=== PATIENT | male | born 1955 | race African-American/Black ===

== ENCOUNTER 2016-06-21 01:17 | Emergency (ER) | payer SELFPAY ==
[~2016-06-21] VITALS: Ht 165.1 cm; Wt 78.9 kg
--- NOTE | 2016-06-21 01:47 | NUR ---
SPOKE WITH JOHN PATIENT SAFETY ATTENDANT AT [facility] AND CONFIRMED PT HAD ANOTHER ROOM AVAILABLE TO RETURN TO. ASKED JOHN TO FAX ADMITTING A FACE SHEET
--- NOTE | 2016-06-21 01:53 | NUR ---
CALLED [facility] FOR BLS TRANSPORT BACK TO [facility] ETA IS [phone]
[2016-06-21 02:46] VITALS: BP 107/75
--- NOTE | 2016-06-21 02:47 | NUR ---
PT LEFT VIA [facility]. NO S/S OF PAIN OR DISTRESS NOTED. VSS. Patient discharged to home in stable condition. Written and verbal after care instructions given. Patient verbalizes understanding of instruction.
== END 2016-06-21 02:47 | disposition home or self-care (01) ==
LOC: ER 01:20
DX: Z00.8 Encounter for other general examination (principal); Z95.0 Presence of cardiac pacemaker
CPT/HCPCS: A4606; Z7610

== ENCOUNTER 2018-05-05 10:19 | Emergency (ER) | payer OTHER, MEDICAID ==
[~2018-05-05] VITALS: Ht 160 cm; Wt 84.4 kg
--- NOTE | 2018-05-05 10:23 | NUR ---
pt brought in from assisted living facility where pt found trying to comit suicide pt ere for psych evaluation currently pt calm and cooperative urine and blood samples will be obtained.
[2018-05-05 10:37] LABS: BASOPHILS # (AUTO) 0.2 /CMM (0.0-0.2); BASOPHILS % (AUTO) 1.9 % (0.0-2.0); EOSINOPHILS % (AUTO) 2.1 % (0.0-6.0); HEMATOCRIT 36 % (39-51); HEMOGLOBIN 11.4 g/dL (13.5-17.5); LYMPHOCYTES # (AUTO) 2.1 /CMM (0.8-4.8); MEAN CORPUSCULAR HGB CONC 32 g/dl (31.0-36.0); MEAN CORPUSCULAR VOLUME 88 fL (80-96); MONOCYTES # (AUTO) 1.1 /CMM (0.1-1.30); MONOCYTES % (AUTO) 12.2 % (2.0-12.0); NEUTROPHILS # (AUTO) 5.6 /CMM (1.8-8.9); NEUTROPHILS % (AUTO) 60.8 % (43.0-81.0); PLATELET COUNT (AUTO) 363 /CMM (150-450); RED BLOOD CELL COUNT(AUTO) 4.07 MIL/uL (4.5-6.0); WHITE BLOOD COUNT (AUTO) 9.3 K/uL (4.3-11.0)
--- NOTE | 2018-05-05 10:40 | NUR ---
pt on [id number] hold lapd writting hold
[2018-05-05 10:43] LABS: CALCIUM, SERUM 8.7 mg/dL (8.5-10.1); CARBON DIOXIDE 27 mmol/L (21-32); CHLORIDE 103 mmol/L (98-107); CREATININE 1.1 mg/dL (0.6-1.3); GLUCOSE 150 mg/dL (74-106); POTASSIUM 3.6 mmol/L (3.5-5.1); SODIUM SERUM 139 mmol/L (136-145); UREA NITROGEN, BLOOD 12 mg/dL (7-18)
[2018-05-05 10:49] LABS: ALANINE AMINOTRANSFERASE 19 U/L (12-78); ALBUMIN 3.5 g/dL (3.4-5.0); ALCOHOL, BLOOD < 3 mg/dL (0-0); ALKALINE PHOSPHATASE 64 U/L (46-116); ASPARTATE AMINOTRANSFERASE 19 U/L (15-37); BILIRUBIN,DIRECT 0.1 mg/dL (0.0-0.2); BILIRUBIN,TOTAL 0.2 mg/dL (0.2-1.0); TOTAL PROTEIN, SERUM 7.3 g/dL (6.4-8.2)
[2018-05-05 10:50] LABS: ACETAMINOPHEN 0 ug/ml (10-30); SALICYLATE 2.4 mg/dL (2.8-20.0)
[2018-05-05] MEDS ORDERED: SIMV10TA6 PO (11:05)
[2018-05-05] MEDS ORDERED: DIVA500T4 PO (11:05)
[2018-05-05] MEDS ORDERED: TERA1CAP4 PO (11:05)
[2018-05-05] MEDS ORDERED: VITA-337 PO (11:05)
[2018-05-05] MEDS ORDERED: DORZ10DR11 LEFTEYE (11:05)
[2018-05-05] MEDS ORDERED: ASPI-1169 PO (11:05)
[2018-05-05] MEDS ORDERED: RISP0.253 PO ×2 (11:05)
[2018-05-05] MEDS ORDERED: SODI15DR4 LEFTEYE (11:05)
[2018-05-05] MEDS ORDERED: DIVA250T PO (11:05)
[2018-05-05] MEDS ORDERED: ALBU18HF2 IH (11:05)
--- NOTE | 2018-05-05 11:06 | NUR ---
Karen jose in ED - 05/05/18 at 1158 by JULIANO CALLED NOÉ, THE SCHOOL TEACHER BODYBUILDER FOR TODAY TO PLACE THE PT IN A ROOM. NO ANSWER, WILL CALL IN 10 MIN
--- NOTE | 2018-05-05 11:06 | NUR ---
CALLED [facility] FOR BED. INFORMED TO CALL FILM REPRODUCER FIREPROOF DOOR ASSEMBLER
--- NOTE | 2018-05-05 11:21 | NUR ---
ISRA TALAVERA CALLED AND INFORMED OB/GYN PHYSICIAN THAT [facility] RE WORKING ON A ROOM FOR THE PT AND THAT SHE IS SENDING A SITTER FOR THE PT
--- NOTE | 2018-05-05 12:05 | NUR ---
CALLED PROJECT MANAGER INTERIOR DESIGN NETWORK DESIGN ARCHITECT. HE INFORMED ME THAT URINE DRUG SCREEN WAS NEEDED BEOFRE HE COULD PROCEED
--- NOTE | 2018-05-05 12:21 | NUR ---
sent urine to lab
[2018-05-05 12:28] LABS: APPEARANCE,URINE Clear (CLEAR); BILIRUBIN,URINE Negative (NEGATIVE); BLOOD, URINE Negative Ery/uL (NEGATIVE); COLOR,URINE Yellow (YELLOW); KETONES,URINE Negative (NEGATIVE); LEUKOCYTE ESTERASE ,URINE Negative (NEGATIVE); NITRITE, URINE Negative (NEGATIVE); PH,URINE 6.5 (5.0-8.0); PROTEIN,URINE Negative (NEGATIVE); UGLUCOSE Negative (NEGATIVE); UROBILINOGEN,URINE 0.2 EU/dL (0.2)
--- NOTE | 2018-05-05 12:48 | NUR ---
AUTOMOTIVE BRAKE SPECIALIST CLINICIAN INFORMED OF URINE TOXICOLOGY SCREEN AND IS ON HIS WAY TO THE HOSPITAL
--- NOTE | 2018-05-05 13:36 | NUR ---
pt evaluating by crisis team
[2018-05-05 16:20] VITALS: BP 118/82
--- NOTE | 2018-05-05 17:29 | NUR ---
DIETARY CALLED FOR REGULAR MEAL
--- NOTE | 2018-05-05 17:35 | NUR ---
pt given meal tray
--- NOTE | 2018-05-05 17:50 | NUR ---
FAXED OVER DOCUMENTS TO [facility]
--- NOTE | 2018-05-05 18:08 | NUR ---
SPOKE TO CLIFTON AT THE [facility]. SHE INFORMED [facility] THAT THE [facility] HAS NO PSYCH BEDS AVAILABLE AND THAT THEY ARE ON DIVERSION. WHEN HE GETS TRANSFERRED AND THEN ADMITTED, CALL [phone], THE NURSING SUP LINE
--- NOTE | 2018-05-05 19:11 | NUR ---
CINTIA FROM [facility] GAVE BED IN ROOM N 28 B. CALL [phone] KIM IS ACCEPTING
--- NOTE | 2018-05-05 19:15 | NUR ---
ATTEMPTED TO CALL [facility] FOR RN REPORT STAFF IS TAKING REPORT CALLED [facility] AFTER 1930. PT ACCEPTED AT [facility] BED 12 ROOM 28-B ACCEPTING MD: JUDY
--- NOTE | 2018-05-05 19:20 | NUR ---
1:1 SITTER BEDSIDE WITH PT. PT RESTING IN BED WITH NO S/S OF ACUTE DISTRESS NOTED
--- NOTE | 2018-05-05 19:21 | NUR ---
SPOKE TO SHARON AT [facility] FOR A BLS TRANSFER TO [facility]. ETA IS 90 MIN TRIP # [id number]
--- NOTE | 2018-05-05 20:26 | NUR ---
REPORT GIVEN TO FRITZ MCFADDEN AT [facility] FOR CONT OF CARE.
== END 2018-05-05 20:55 ==
LOC: ER 10:21
DX: R45.851 Suicidal ideations (principal); F25.9 Schizoaffective disorder, unspecified; E11.9 Type 2 diabetes mellitus without complications; R00.1 Bradycardia, unspecified; E78.5 Hyperlipidemia, unspecified; E03.9 Hypothyroidism, unspecified; F17.210 Nicotine dependence, cigarettes, uncomplicated; Z95.0 Presence of cardiac pacemaker; Z79.82 Long term (current) use of aspirin
CPT/HCPCS: 36415; 71045; 80048; 80076; 80305; 80307; 80329; 81001; 85025; 87081; 93005; 99285; A4606; G0480; 81000-TC